=== PATIENT | female | born 1980 | race Hispanic/Latino ===

== ENCOUNTER 2019-01-23 14:19 | Emergency (ER) | payer SELFPAY ==
--- NOTE | 2019-01-23 14:44 | Emergency Department Report ---
Blank Doc - Documentation Documentation: This is a 38-year-old female that presents with abdominal pain with n/v. Stated is post-op of open hernia repair last week. This initial assessment/diagnostic orders/clinical plan/treatment(s) is/are subject to change based on patient's health status, clinical progression and re- assessment by fellow clinical providers in the ED. Further treatment and workup at subsequent clinical providers discretion. Patient/guardians urged not to elope from the ED as their condition may be serious if not clinically assessed and managed. Initial orders include: 1- Patient sent to MAIN ED for further evaluation and treatment 2- labs 3- UA 4- XR abd
[2019-01-23 15:17] LABS: Basophils % (Auto) 0.3 % (0.0-1.8); Eosinophils # (Auto) 0.2 K/mm3 (0.0-0.4); Eosinophils % (Auto) 1.6 % (0.0-4.3); Hematocrit 39.8 % (30.3-42.9); Hemoglobin 13.2 gm/dl (10.1-14.3); Lymphocytes # (Auto) 1.9 K/mm3 (1.2-5.4); Lymphocytes % (Auto) 18.4 % (13.4-35.0); Mean Corpuscular HGB Conc 33 % (30-34); Mean Corpuscular Volume 89 fl (79-97); Monocytes # (Auto) 0.7 K/mm3 (0.0-0.8); Monocytes % (Auto) 6.6 % (0.0-7.3); Platelet Count 321 K/mm3 (140-440); Red Blood Count 4.46 M/mm3 (3.65-5.03); Red Cell Distribution Width 13.5 % (13.2-15.2)
[2019-01-23 15:29] LABS: Bacteria,Urine 1+ /HPF (Negative); Bilirubin,Urine NEG (Negative); Blood,Urine LG (Negative); Color,Urine Yellow (Yellow); Mucus,Urine FEW /HPF; Protein,Urine <15 mg/dL mg/dL (Negative); Urobilinogen,Urine < 2.0 mg/dL (<2.0)
[2019-01-23 16:23] LABS: Alanine Aminotransferase 11 units/L (7-56); Albumin 3.9 g/dL (3.9-5); BUN/Creatinine Ratio 23; Blood Urea Nitrogen 16 mg/dL (7-17); Calcium 9.7 mg/dL (8.4-10.2); Hemolysis Index 36
--- NOTE | 2019-01-23 16:26 | XRay Report ---
ACUTE ABDOMINAL SERIES, 6 IMAGES INDICATION: abd pain. COMPARISON: No relevant prior imaging study available. FINDINGS: No significant abnormality is seen on the included chest radiograph. Bowel gas pattern is within normal limits. No free air is seen. IUD is noted in expected position in the central pelvis. IMPRESSION: 1. No acute findings. Signer Name: Luis Gonsalez MD Signed: 01/23/2019 4:22 PM Workstation Name: [id number]
[2019-01-23] MEDS ORDERED: MORPHINE IV ONE ×3 (18:34→19:55)
[2019-01-23] MEDS ORDERED: ZOFRAN IV ONE (18:34)
[2019-01-23] MEDS ORDERED: TORADOL ONE (18:35)
[2019-01-23] MEDS ORDERED: TORADOL IV ONE (18:42)
--- NOTE | 2019-01-23 19:24 | Cat Scan Report ---
CT abdomen pelvis w con INDICATION: severe abd pain, s/p 8 days hernia surg. TECHNIQUE: All CT scans at this location are performed using CT dose reduction for ALARA by means of automated e xposure control. COMPARISON: None available. FINDINGS: Lung bases are clear. Liver, gallbladder, spleen, pancreas, kidneys and adrenals are negative. Abdomi nal aorta is normal in size. No adenopathy. Postop change in the subcutaneous tissues in the upper ab dominal midline, with a 4 cm soft tissue/fluid density, containing a small bubble of gas. Pelvis Uterus (with IUD) and ovaries are negative. Urinary bladder is unremarkable. No free fluid or inflamm ation. No significant bowel abnormalities. Appendix is not optimally seen but is thought to be unrema rkable. IMPRESSION: 1. 4 cm collection of gas and fluid in the subcutaneous tissues of the right upper abdominal midline. This is probably normal postop change, but I cannot exclude a small subcutaneous abscess. If clinica lly indicated, this could easily be drained under ultrasound guidance. 2. No significant intra-abdominal abnormalities. Signer Name: Randy Rinaldi MD Signed: 01/23/2019 7:20 PM Workstation Name: [id number]
--- NOTE | 2019-01-23 20:01 | Emergency Department Report ---
ED Abdominal Pain HPI - General Chief Complaint: Abdominal Pain Stated Complaint: ABD PAIN/POST SURGERY Time Seen by Provider: 01/23/19 14:43 Source: patient, EMS Mode of arrival: Ambulatory Limitations: No Limitations - History of Present Illness Initial Comments: 38 y.o with abdominal pain, 8/10 s/p abdominal surgery 8 days ago. no fever, chills or night sweats. no drainage in incision. patient had midline incision. no chest pain or sob. MD Complaint: abdominal pain -: Gradual Location: periumbilical Radiation: none Migration to: no migration Severity scale (0 -10): 7 Quality: stabbing Consistency: intermittent Improves With: nothing Worsens With: nothing Context: recent injury Associated Symptoms: nausea, constipation. denies: vomiting, diarrhea - Related Data Previous Rx's Medication Instructions Recorded Last Taken Type Clindamycin [Clindamycin CAP] 150 mg PO Q6HR #40 capsule 01/23/19 Unknown Rx Cyclobenzaprine [Flexeril] 10 mg PO TID PRN #15 tablet 01/23/19 Unknown Rx Allergies Allergy/AdvReac Type Severity Reaction Status Date / Time ketorolac [From Toradol] Allergy Unknown Verified 01/23/19 14:26 sulfabenzamide Allergy Unknown Verified 01/23/19 14:26 ED Review of Systems ROS: Stated complaint: ABD PAIN/POST SURGERY Other details as noted in HPI Comment: All other systems reviewed and negative Respiratory: denies: cough Cardiovascular: denies: chest pain, palpitations Endocrine: denies: flushing Gastrointestinal: abdominal pain, nausea ED Past Medical Hx - Past Medical History Previous Medical History?: No - Surgical History Past Surgical History?: Yes Additional Surgical History: hernia surgery - Social History Smoking Status: Never Smoker Substance Use Type: None - Medications Home Medications: Home Medications Medication Instructions Recorded Confirmed Last Taken Type Clindamycin [Clindamycin CAP] 150 mg PO Q6HR #40 capsule 01/23/19 Unknown Rx Cyclobenzaprine [Flexeril] 10 mg PO TID PRN #15 tablet 01/23/19 Unknown Rx ED Physical Exam - General Limitations: No Limitations General appearance: alert, in no apparent distress - Head Head exam: Present: atraumatic, normocephalic - Eye Eye exam: Present: normal appearance, PERRL, EOMI Pupils: Present: normal accommodation - ENT ENT exam: Present: normal exam - Neck Neck exam: Present: normal inspection - Respiratory Respiratory exam: Present: normal lung sounds bilaterally - Cardiovascular Cardiovascular Exam: Present: regular rate, normal rhythm - GI/Abdominal GI/Abdominal exam: Present: soft, normal bowel sounds - Neurological Exam Neurological exam: Present: alert, oriented X3 - Skin Skin exam: Present: warm, dry, normal color ED Course Vital Signs 01/23/19 01/23/19 14:42 20:18 Temperature 99.2 F Pulse Rate 86 89 Respiratory 18 18 Rate Blood Pressure 134/86 Blood Pressure 102/74 [Right] O2 Sat by Pulse 96 100 Oximetry ED Medical Decision Making - Lab Data Result diagrams: 01/23/19 14:57 01/23/19 14:57 - EKG Data When compared to previous EKG there are: no significant change - Medical Decision Making 38 y.o 8 day post abdominal surgery with abdominal pain. no fever, no elevated wbc, pain is controlled in er ct showed 4 cm surgical site fluid collection, post op changes vs abscess. I discussed this with Dr. Mistry surgery ethylbenzene converter operator, she states in the abscess of fever, chills, wbc elevation, this is likely a seroma. But she will be happy to see patient in office early next week, as long as patient is covered with antibiotics, if this is an abscess, she will do u/s guided aspiration then. This plan was communicated with patient who agrees with it. and voiced understanding. Critical care attestation.: If time is entered above; I have spent that time in minutes in the direct care of this critically ill patient, excluding procedure time. ED Disposition Clinical Impression: Postoperative abdominal pain UTI (urinary tract infection) Qualifiers: Urinary tract infection type: acute cystitis Hematuria presence: without hematuria Qualified Code(s): N30.00 - Acute cystitis without hematuria Disposition: - TO HOME OR SELFCARE Is pt being admited?: No Does the pt Need Aspirin: No Condition: Stable Instructions: Abdominal Pain (ED) Prescriptions: Clindamycin [Clindamycin CAP] 150 mg PO Q6HR #40 capsule Cyclobenzaprine [Flexeril] 10 mg PO TID PRN #15 tablet PRN Reason: Muscle Spasm Referrals: FARGO MARTY GERONIMO MD [Primary Care Provider] - 3-5 Days LIAN MISTRY MD [Staff Physician] - 3-5 Days
[2019-01-23 20:19] VITALS: BP 102/74
== END 2019-01-23 21:03 | disposition home or self-care (01) ==
LOC: ED 14:19
DX: N39.0 Urinary tract infection, site not specified (principal); Z98.890 Other specified postprocedural states; Z88.6 Allergy status to analgesic agent; Z88.2 Allergy status to sulfonamides
CPT/HCPCS: 36415; 74022; 74177; 80053; 81001; 83690; 84703; 85025; 96374; 96375; 96376; 99285; J1885; J2270; J2405; Q9967

== ENCOUNTER 2019-04-14 15:15 | Emergency (ER) | payer SELFPAY ==
[2019-04-14] MEDS ORDERED: MORPHINE 4 MG/1 ML INJ IV ONE (16:06)
[2019-04-14] MEDS ORDERED: ONDANSETRON 4 MG/2 ML INJ IV ONE ×2 (16:06→17:50)
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
[2019-04-14 16:45] LABS: Basophils % (Auto) 0.3 % (0.0-1.8); Eosinophils # (Auto) 0.2 K/mm3 (0.0-0.4); Hematocrit 39.9 % (30.3-42.9); Hemoglobin 13.2 gm/dl (10.1-14.3); Lymphocytes # (Auto) 1.1 K/mm3 (1.2-5.4); Lymphocytes % (Auto) 15.1 % (13.4-35.0); Mean Corpuscular HGB Conc 33 % (30-34); Mean Corpuscular Volume 91 fl (79-97); Monocytes # (Auto) 0.5 K/mm3 (0.0-0.8); Monocytes % (Auto) 6.5 % (0.0-7.3); Platelet Count 266 K/mm3 (140-440); Red Blood Count 4.37 M/mm3 (3.65-5.03); Red Cell Distribution Width 13.3 % (13.2-15.2)
[2019-04-14 17:00] LABS: BUN/Creatinine Ratio 18; Blood Urea Nitrogen 11 mg/dL (7-17); Calcium 9.1 mg/dL (8.4-10.2); Hemolysis Index 13
[2019-04-14 17:03] LABS: Alanine Aminotransferase 19 units/L (7-56); Albumin 3.9 g/dL (3.9-5)
[2019-04-14 17:16] LABS: Erythrocyte Sedimentation Rate 43 mm/Hr (0-20)
[2019-04-14 17:20] LABS: Bilirubin,Direct < 0.2 mg/dL (0-0.2)
--- NOTE | 2019-04-14 17:40 | Emergency Department Report ---
<BALJITSARAH - Last Filed: 04/14/19 22:43> ED Abdominal Pain HPI - General Chief Complaint: Abdominal Pain Stated Complaint: ABD PAIN Time Seen by Provider: 04/14/19 15:54 - Related Data Previous Rx's Medication Instructions Recorded Last Taken Type Acetaminophen [Non-Aspirin Extra 500 mg PO Q6HR PRN #30 tablet 04/14/19 Unknown Rx Strength] Metoclopramide [Reglan] 10 mg PO QID PRN #30 tablet 04/14/19 Unknown Rx Mineral Oil/Petrolatum,White 3.5 gm OP Q1HR PRN #1 oint...g. 04/14/19 Unknown Rx [Refresh Lacri-Lube Ointment] oxyCODONE [Roxicodone] 5 mg PO Q6HR PRN #15 tablet 04/14/19 Unknown Rx traMADol [Ultram 50 MG tab] 50 mg PO Q6HR PRN #10 tablet 04/15/19 Unknown Rx Allergies Allergy/AdvReac Type Severity Reaction Status Date / Time acetaminophen [From Vicodin] Allergy Swelling Verified 04/15/19 08:48 amoxicillin Allergy Swelling Verified 04/15/19 08:48 hydrocodone [From Vicodin] Allergy Swelling Verified 04/15/19 08:48 ketorolac [From Toradol] Allergy Unknown Verified 01/23/19 14:26 sulfabenzamide Allergy Unknown Verified 01/23/19 14:26 ED Past Medical Hx - Medications Home Medications: Home Medications Medication Instructions Recorded Confirmed Last Taken Type Acetaminophen [Non-Aspirin Extra 500 mg PO Q6HR PRN #30 tablet 04/14/19 Unknown Rx Strength] Metoclopramide [Reglan] 10 mg PO QID PRN #30 tablet 04/14/19 Unknown Rx Mineral Oil/Petrolatum,White 3.5 gm OP Q1HR PRN #1 oint...g. 04/14/19 Unknown Rx [Refresh Lacri-Lube Ointment] oxyCODONE [Roxicodone] 5 mg PO Q6HR PRN #15 tablet 04/14/19 Unknown Rx traMADol [Ultram 50 MG tab] 50 mg PO Q6HR PRN #10 tablet 04/15/19 Unknown Rx ED Physical Exam - General Limitations: No Limitations General appearance: alert, anxious, obese - Head Head exam: Present: atraumatic, normocephalic - Eye Eye exam: Present: PERRL, EOMI, conjunctival injection. Absent: normal appearance (bilateral conjunctival injection is noted), nystagmus, periorbital tenderness - ENT ENT exam: Present: normal exam, normal orophraynx, mucous membranes moist, norm al external ear exam - Neck Neck exam: Present: normal inspection, full ROM - Respiratory Respiratory exam: Present: normal lung sounds bilaterally. Absent: respiratory distress - Cardiovascular Cardiovascular Exam: Present: regular rate, normal rhythm, normal heart sounds. Absent: bradycardia, tachycardia, irregular rhythm, systolic murmur, diastolic murmur, rubs, gallop - GI/Abdominal GI/Abdominal exam: Present: soft, tenderness, normal bowel sounds, other (there is epigastric and right upper quadrant tenderness.). Absent: pulsatile mass - Extremities Exam Extremities exam: Present: normal inspection, full ROM, other (2+ pulses noted in the bilateral upper, lower extremities. There is no long bone tenderness. Musculoskeletal compartments are soft. The pelvis is stable.). Absent: pedal edema, calf tenderness - Back Exam Back exam: Present: normal inspection, CVA tenderness (R) - Neurological Exam Neurological exam: Present: alert, oriented X3, normal gait, other (there is no facial droop. The tongue is midline. Extraocular movements are intact bilaterally. Patient speaking in full complete sentences. Shoulder shrug is intact bilaterally. Hearing is grossly intact bilaterally. Visual acuity inta ct to finger counting and color perception at a close distance. 5/5 strength 4 extremities. Sensation intact to light touch in 4 extremities.) - Psychiatric Psychiatric exam: Present: normal affect, normal mood - Skin Skin exam: Present: warm, dry, intact, normal color. Absent: rash ED Course - Reevaluation(s) Reevaluation #1: 04/14/19 22:43 There is no hypopyon. There is no purulent discharge from the eyes. ED Medical Decision Making - Lab Data Result diagrams: 04/14/19 16:12 04/14/19 16:12 - Radiology Data Radiology results: report reviewed, image reviewed ED Disposition Clinical Impression: Red eye, Abdominal pain Disposition: DC-01 TO HOME OR SELFCARE Is pt being admited?: No Does the pt Need Aspirin: No Condition: Stable Instructions: Abdominal Pain (ED) Additional Instructions: Patient should wear corrective glasses, and not wear contact lenses. Recommend patient follow up with an photo offset printer, eye doctor within the next 2 days. Patient may take the pain medication as needed, nausea medication as needed and directed. Use artificial tears as directed. Follow-up with the primary care doctor within the next month. Do not take metformin medication for the next 2 days, if patient takes this medication. Return to the emergency room right away with new, worsened, different symptoms, or symptoms not present on the initial emergency room evaluation. Prescriptions: Acetaminophen [Non-Aspirin Extra Strength] 500 mg PO Q6HR PRN #30 tablet PRN Reason: Pain , Severe (7-10) Mineral Oil/Petrolatum,White [Refresh Lacri-Lube Ointment] 3.5 gm OP Q1HR PRN #1 oint...g. PRN Reason: Pain , Severe (7-10) Metoclopramide [Reglan] 10 mg PO QID PRN #30 tablet PRN Reason: Nausea oxyCODONE [Roxicodone] 5 mg PO Q6HR PRN #15 tablet PRN Reason: Pain Referrals: LOIS RAMSAY MD [Staff Physician] - 3-5 Days [facility] [Provider Group] - as needed SANDRINE VILLANUEVA MD [Staff Physician] - 3-5 Days DORIE JONES MD [Staff Physician] - 3-5 Days SARAH BARNETT MD [Staff Physician] - 3-5 Days DUNG GRAY MD [Staff Physician] - 3-5 Days <SHADI WHALEY - Last Filed: 04/18/19 07:19> ED Abdominal Pain HPI - General Source: patient Mode of arrival: Stretcher Limitations: No Limitations - History of Present Illness Initial Comments: 38-year-old female patient with history of kidney stones, gallstones, and hernia repair and January of this year complains of right sided abdominal pain, painful red eyes bilaterally, blurry vision, and headache 5 days and s tates abdominal pain actually began as 2-3 weeks ago and she was seen at [place] and diagnosed with a viral syndrome. She states the pain resolved and returned 5 days ago. She denies any fever/chills. She admits to urinary tingling, but denies cheery or urinary frequency. Patient also states nausea and vomiting of food contents, but denies hematochezia or coffee ground emesis. She also states she has been constipated for the past 5 days. She states the pain is mainly in her right upper quadrant and radiates around to her right flank and right lower quadrant. MD Complaint: abdominal pain -: Sudden Location: RUQ Radiation: RLQ, R flank Severity scale (0 -10): 10 Quality: sharp Improves With: nothing Associated Symptoms: nausea, vomiting. denies: diarrhea, fever, chills, hematemesis, hematochezia, melena, hematuria, syncope ED Review of Systems ROS: Stated complaint: ABD PAIN Other details as noted in HPI Constitutional: malaise. denies: chills, diaphoresis, fever Eyes: eye pain, vision change ENT: denies: throat pain Respiratory: denies: cough, shortness of breath, SOB with exertion, SOB at rest Cardiovascular: denies: chest pain, palpitations, edema, syncope Endocrine: no symptoms reported Gastrointestinal: abdominal pain, nausea, vomiting, constipation. denies: diarrhea, hematemesis, melena, hematochezia Musculoskeletal: denies: back pain, joint swelling, arthralgia, myalgia Skin: denies: rash, lesions Neurological: headache. denies: numbness, paresthesias, abnormal gait Psychiatric: denies: anxiety, depression ED Past Medical Hx - Past Medical History Previous Medical History?: No - Surgical History Past Surgical History?: Yes Additional Surgical History: hernia surgery Jan 2019 - Social History Smoking Status: Never Smoker Substance Use Type: None ED Physical Exam - General Limitations: No Limitations General appearance: alert, in no apparent distress - Head Head exam: Present: atraumatic, normocephalic - Eye Eye exam: Present: normal appearance, PERRL, EOMI, conjunctival injection, periorbital tenderness. Absent: scleral icterus, periorbital swelling - Neck Neck exam: Present: normal inspection, full ROM. Absent: meningismus, lympha denopathy - Respiratory Respiratory exam: Present: normal lung sounds bilaterally. Absent: respiratory distress - Cardiovascular Cardiovascular Exam: Present: regular rate, normal rhythm. Absent: systolic murmur, diastolic murmur, rubs, gallop - GI/Abdominal GI/Abdominal exam: Present: soft, tenderness. Absent: distended - Back Exam Back exam: Present: normal inspection, CVA tenderness (R). Absent: rash noted - Neurological Exam Neurological exam: Present: alert, oriented X3 - Psychiatric Psychiatric exam: Present: normal affect, normal mood - Skin Skin exam: Present: warm, dry, intact, normal color. Absent: rash, diaphoretic, erythema, urticaria ED Course Vital Signs 04/14/19 04/14/19 04/14/19 15:30 15:34 15:45 Temperature 98.9 F Pulse Rate 83 89 93 H Respiratory 15 12 Rate Blood Pressure 137/82 Blood Pressure 137/82 [Right] O2 Sat by Pulse 98 99 Oximetry 04/14/19 04/14/19 04/14/19 16:01 16:15 16:31 Temperature Pulse Rate 83 88 97 H Respiratory 14 11 L 19 Rate Blood Pressure 137/82 137/82 137/82 Blood Pressure [Right] O2 Sat by Pulse 100 100 99 Oximetry 04/14/19 04/14/19 04/14/19 16:45 16:54 17:01 Temperature Pulse Rate 92 H 92 H Respiratory 12 11 L 10 L Rate Blood Pressure 137/82 146/82 Blood Pressure [Right] O2 Sat by Pulse 100 98 Oximetry 04/14/19 04/14/19 04/14/19 17:15 17:24 17:30 Temperature Pulse Rate 90 91 H Respiratory 11 L 13 9 L Rate Blood Pressure 131/87 122/78 Blood Pressure [Right] O2 Sat by Pulse 99 99 Oximetry 04/14/19 04/14/19 04/14/19 17:45 18:00 18:15 Temperature Pulse Rate 89 88 89 Respiratory 16 10 L 12 Rate Blood Pressure 129/81 116/71 120/86 Blood Pressure [Right] O2 Sat by Pulse 99 98 99 Oximetry 04/14/19 04/14/19 04/14/19 18:22 18:52 19:30 Temperature 98.1 F Pulse Rate 81 Respiratory 20 18 18 Rate Blood Pressure Blood Pressure 121/84 [Right] O2 Sat by Pulse 98 Oximetry 04/14/19 22:45 Temperature 97.9 F Pulse Rate 84 Respiratory 18 Rate Blood Pressure Blood Pressure 127/89 [Right] O2 Sat by Pulse 98 Oximetry ED Medical Decision Making - Lab Data Result diagrams: 04/14/19 16:12 04/14/19 16:12 Lab Results 11/04/19 11/04/19 11/04/19 Range/Units 16:12 16:12 16:12 WBC 7.5 (4.5-11.0) K/mm3 RBC 4.37 (3.65-5.03) M/mm3 Hgb 13.2 (10.1-14.3) gm/dl Hct 39.9 (30.3-42.9) % MCV 91 (79-97) fl MCH 30 (28-32) pg MCHC 33 (30-34) % RDW 13.3 (13.2-15.2) % Plt Count 266 (140-440) K/mm3 Lymph % (Auto) 15.1 (13.4-35.0) % [place] % (Auto) 6.5 (0.0-7.3) % Eos % (Auto) 2.0 (0.0-4.3) % Baso % (Auto) 0.3 (0.0-1.8) % Lymph # 1.1 L (1.2-5.4) K/mm3 [place] # 0.5 (0.0-0.8) K/mm3 Eos # 0.2 (0.0-0.4) K/mm3 Baso # 0.0 (0.0-0.1) K/mm3 Seg Neutrophils % 76.1 H (40.0-70.0) % Seg Neutrophils # 5.7 (1.8-7.7) K/mm3 ESR 43 (0-20) mm/Hr Sodium 138 (137-145) mmol/L Potassium 4.2 (3.6-5.0) mmol/L Chloride 102.6 (98-107) mmol/L Carbon Dioxide 24 (22-30) mmol/L Anion Gap 16 mmol/L BUN 11 (7-17) mg/dL Creatinine 0.6 L (0.7-1.2) mg/dL Estimated GFR > 60 ml/min BUN/Creatinine Ratio 18 % Glucose 100 (65-100) mg/dL Calcium 9.1 (8.4-10.2) mg/dL Total Bilirubin (0.1-1.2) mg/dL Direct Bilirubin (0-0.2) mg/dL Indirect Bilirubin mg/dL AST (5-40) units/L ALT (7-56) units/L Alkaline Phosphatase (35-129) units/L C-Reactive Protein (0.00-1.30) mg/dL Total Protein (6.3-8.2) g/dL Albumin (3.9-5) g/dL Albumin/Globulin Ratio % Lipase (13-60) units/L HCG, Qual Negative (Negative) 04/14/19 04/14/19 Range/Units 16:21 18:07 WBC (4.5-11.0) K/mm3 RBC (3.65-5.03) M/mm3 Hgb (10.1-14.3) gm/dl Hct (30.3-42.9) % MCV (79-97) fl MCH (28-32) pg MCHC (30-34) % RDW (13.2-15.2) % Plt Count (140-440) K/mm3 Lymph % (Auto) (13.4-35.0) % [place] % (Auto) (0.0-7.3) % Eos % (Auto) (0.0-4.3) % Baso % (Auto) (0.0-1.8) % Lymph # (1.2-5.4) K/mm3 [place] # (0.0-0.8) K/mm3 Eos # (0.0-0.4) K/mm3 Baso # (0.0-0.1) K/mm3 Seg Neutrophils % (40.0-70.0) % Seg Neutrophils # (1.8-7.7) K/mm3 ESR (0-20) mm/Hr Sodium (137-145) mmol/L Potassium (3.6-5.0) mmol/L Chloride (98-107) mmol/L Carbon Dioxide (22-30) mmol/L Anion Gap mmol/L BUN (7-17) mg/dL Creatinine (0.7-1.2) mg/dL Estimated GFR ml/min BUN/Creatinine Ratio % Glucose (65-100) mg/dL Calcium (8.4-10.2) mg/dL Total Bilirubin 0.30 (0.1-1.2) mg/dL Direct Bilirubin < 0.2 (0-0.2) mg/dL Indirect Bilirubin 0.1 mg/dL AST 19 (5-40) units/L ALT 19 (7-56) units/L Alkaline Phosphatase 76 (35-129) units/L C-Reactive Protein 1.80 H (0.00-1.30) mg/dL Total Protein 7.2 (6.3-8.2) g/dL Albumin 3.9 (3.9-5) g/dL Albumin/Globulin Ratio 1.2 % Lipase 15 (13-60) units/L HCG, Qual (Negative) - Medical Decision Making Ultrasound and CT head pending. Vitals are WNL. Decadron morphine and Zofran given for pain control. Patient handed off to Gentry Sun need for Harshad-Pen eye exam and fluorescein stain. Visual acuity test ordered. Patient currently in ultrasound. Critical care attestation.: If time is entered above; I have spent that time in minutes in the direct care of this critically ill patient, excluding procedure time.
[2019-04-14] MEDS ORDERED: MORPHINE 2 MG/1 ML INJ IV ONE (17:51)
[2019-04-14] MEDS ORDERED: dexAMETHasone 20 MG/5 ML VIAL IV ONE (17:51)
[2019-04-14] MEDS ORDERED: FLUORESCEIN 1 MG STRIP OP ONE (18:59)
[2019-04-14] MEDS ORDERED: TETRACAINE 0.5% OPHTH SOLN 4ML OU ONE (19:12)
[2019-04-14 19:25] LABS: Bilirubin,Urine NEG (Negative); Blood,Urine NEG (Negative); Color,Urine Yellow (Yellow); Mucus,Urine FEW /HPF; Protein,Urine <15 mg/dL mg/dL (Negative); Urobilinogen,Urine < 2.0 mg/dL (<2.0); WBC,Urine < 1.0 /HPF (0.0-6.0)
[2019-04-14] MEDS ORDERED: SODIUM CHLORIDE 0.9% 500 ML 500 ML IV ONE (19:25)
[2019-04-14] MEDS ORDERED: HYDROmorphone 1 MG/1 ML INJ IV ONE (19:25)
[2019-04-14] MEDS ORDERED: METOCLOPRAMIDE 10 MG/2 ML INJ IV ONE (19:25)
--- NOTE | 2019-04-14 19:29 | Ultrasound Report ---
ULTRASOUND ABDOMEN, LIMITED (RIGHT UPPER QUADRANT) INDICATION: RUQ pain, hx of gallstones. COMPARISON: CT of the abdomen and pelvis 01/23/2019. FINDINGS: PANCREAS: Visualized portion shows no significant abnormality. LIVER: Mild generalized increased echogenicity compared to the right renal cortex without focal lesio n. Normal directional blood flow in the main portal vein. GALLBLADDER: No significant abnormality. BILE DUCTS: No significant abnormality. Common bile duct measures 2.7 mm. FREE FLUID: None. ADDITIONAL FINDINGS: Images of the right kidney are normal. IMPRESSION: 1. No evidence of gallstones. 2. Mild diffuse fatty infiltration of the liver. Signer Name: Berny Ramos MD Signed: 04/14/2019 7:24 PM Workstation Name: [id number]
--- NOTE | 2019-04-14 21:47 | Cat Scan Report ---
CT abdomen pelvis w con INDICATION: MAIN: rlq right flank pain n/v-100ML OMNI 300. TECHNIQUE: All CT scans at this location are performed using CT dose reduction for ALARA by means of automated e xposure control. COMPARISON: 01/23/2019 FINDINGS: Lung bases are clear. Liver, gallbladder, spleen, pancreas, kidneys and adrenals are negative. Abdomi nal aorta is normal in size. No adenopathy. Pelvis Normal appendix. IUD in the uterus. Urinary bladder is mostly collapsed but grossly unremarkable. No free fluid or inflammation. IMPRESSION: 1. No acute abnormalities. Signer Name: Randy Rinaldi MD Signed: 04/14/2019 9:43 PM Workstation Name: [id number]
[2019-04-14 23:16] VITALS: BP 127/89
== END 2019-04-14 23:17 | disposition home or self-care (01) ==
LOC: ED 15:15 → EEVIPCON 15:15 → ED 23:17
DX: R10.9 Unspecified abdominal pain (principal); H57.13 Ocular pain, bilateral
CPT/HCPCS: 36415; 74177; 76705; 80048; 80076; 81001; 83690; 84703; 85025; 85652; 86140; 96361; 96374; 96375; 96376; 99284; J1100; J1170; J2270; J2405; J2765; J7040; Q9967

== ENCOUNTER 2019-04-15 08:10 | Emergency (ER) | payer OTHER ==
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
[2019-04-15 10:32] LABS: Basophils % (Auto) 0.3 % (0.0-1.8); Hematocrit 41.3 % (30.3-42.9); Hemoglobin 14.3 gm/dl (10.1-14.3); Lymphocytes # (Auto) 1.2 K/mm3 (1.2-5.4); Lymphocytes % (Auto) 11.8 % (13.4-35.0); Mean Corpuscular HGB Conc 35 % (30-34); Mean Corpuscular Volume 90 fl (79-97); Monocytes # (Auto) 0.5 K/mm3 (0.0-0.8); Monocytes % (Auto) 4.8 % (0.0-7.3); Platelet Count 311 K/mm3 (140-440); Red Blood Count 4.61 M/mm3 (3.65-5.03); Red Cell Distribution Width 13.4 % (13.2-15.2)
[2019-04-15 10:45] LABS: BUN/Creatinine Ratio 20; Blood Urea Nitrogen 10 mg/dL (7-17); Calcium 9.4 mg/dL (8.4-10.2); Hemolysis Index 52
[2019-04-15 10:49] LABS: Alanine Aminotransferase 20 units/L (7-56); Albumin 3.9 g/dL (3.9-5)
[2019-04-15 10:59] LABS: Bilirubin,Direct < 0.2 mg/dL (0-0.2)
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
[2019-04-15] MEDS ORDERED: traMADol 50 MG TAB PO ONE (12:06)
[2019-04-15 12:27] VITALS: BP 131/84
== END 2019-04-15 12:25 | disposition home or self-care (01) ==
LOC: ED 08:10
DX: S20.20XA Contusion of thorax, unspecified, initial encounter (principal); Z98.890 Other specified postprocedural states; Z79.899 Other long term (current) drug therapy; Z88.1 Allergy status to other antibiotic agents; Z88.5 Allergy status to narcotic agent; Z88.2 Allergy status to sulfonamides; Z88.8 Allergy status to other drugs, medicaments and biological substances; Y04.0XXA Assault by unarmed brawl or fight, initial encounter; Y93.89 Activity, other specified; Y92.89 Other specified places as the place of occurrence of the external cause; Y99.8 Other external cause status
CPT/HCPCS: 36415; 71046; 72072; 80048; 80076; 84703; 85025